=== PATIENT | male | born 1985 | race Caucasian/White ===

== ENCOUNTER 2024-03-13 20:58 | Emergency (ER) | payer OTHER, SELFPAY ==
[2024-03-13 21:09] VITALS: BP 122/83
--- NOTE | 2024-03-13 23:14 | ED.GENMED ---
History of Present Illness
General
Chief Complaint: Cold/Flu/URI Symptoms
Source: patient
Time Seen by Provider: 03/13/24 22:59
History of Present Illness
History of Present Illness:
38-year-old male presenting emergency department for evaluation of fevers, cough and generalized bodyaches over the last 24 hours. He attempted some Mucinex earlier this evening with minimal relief. No known sick contacts, recent travel or recent
antibiotics. Patient is also denying any abdominal pain, nausea, vomiting or any GI related symptoms.
Past History
Past History
ED Past Medical History: None
ED Past Surgical History: Appendectomy and Orthopedic
Social History
Tobacco: Non-smoker
Alcohol: None
Drug: None
Personal: Single
Living: with family
Employment: Employed
Review of Systems
Review of Systems
All Other Systems: ROS reviewed and negative except as documented in HPI and ROS
Phy Exam
Physical Exam
Physical Exam:
GENERAL: Alert , in no apparent distress
EYE: conjunctiva clear
Head: Normocephalic atraumatic
NECK: Supple,
ENT: mmm.
LUNGS: no acute respiratory distress
NEUROLOGICAL: Alert and oriented
SKIN: Warm and dry, skin intact.
MUSCULOSKELETAL: well perfused.
PSYCH: Normal and appropriate interaction.
Scores
Heart Failure Risk
Heart Failure Risk Score: Not Applicable
Heart Score for Chest Pain Patients
STEMI patient?: Not applicable
Withdrawal Assessment of Alcohol
Withdrawal Assessment Completed?: Not applicable
Course
Orders/Labs/Results
Orders:
Orders
03/13/24 21:09
Influenza A+B Rapid Molecular Urgent
NICOLAS Source: Nasal Swab
Specimen Description:
Date Specimen was Collected: 03/13/24
Time Specimen was Collected: 21:00
Vital Signs
Initial and Last Documented VS:
Initial Vital Signs
Temp Pulse Resp BP Pulse Ox
100 F 124 18 122/83 96
03/13/24 21:09 03/13/24 21:09 03/13/24 21:09 03/13/24 21:09 03/13/24 21:09
Last Documented Vital Signs
Temp Pulse Resp BP Pulse Ox
102.1 F H 124 26 132/78 100
03/13/24 23:15 03/13/24 23:15 03/13/24 23:15 03/13/24 23:15 03/13/24 23:15
MDM/Problems Addressed
Differential Diagnosis Includes:
Flu, COVID, viral syndrome, pneumonia
MDM/Problems Addressed:
38-year-old male presenting the ER for evaluation of 1 day of flulike symptoms. Patient test positive for flu A on arrival. Fever noted. Patient will take Motrin or Tylenol upon getting home. Tamiflu ordered. Patient advised on continued
supportive care measures. Otherwise stable for discharge home.
*Pulse Oximetry
Patient hypoxic: no
*Critical Care Note
Total Time (30-74mins, 75-104mins- exclusive of procedures): Not Applicable
ED Attending Note
-
Portions of this chart may have been created with voice recognition software.� Occasional wrong word or��sound alike� substitutions may have occurred due to the inherent limitations of voice recognition software.
Discharge Plan
Departure
Patient Disposition: Home (Routine Discharge)
Date of Disposition: 03/13/24
Time of Disposition: 23:14
Patient with high blood pressure during this ER visit?: No
Discharge Problem:
Influenza A
Instructions: Flu in adults - Discharge instructions
Prescriptions:
New
oseltamivir [Tamiflu] 75 mg capsule
75 mg PO BID 5 Days Qty: 10 0RF
Interventions
Interventions:
*Risk Screen - Suicide Last Done: 03/13/24 20:59
*General Assessment Last Done: 03/13/24 23:15
*Neglect/Abuse Screening Last Done: 03/13/24 20:59
*Nursing Disposition Last Done: 03/13/24 23:25
ED- Pulmonary Assessment Last Done: 03/13/24 23:15
Discharge Date and Time
Discharge Date/Time: 03/13/24 23:25
Print Language: MARSHALLESE
[2024-03-13 23:15] VITALS: BP 132/78
== END 2024-03-13 23:25 | disposition home or self-care (01) ==
LOC: EMR 20:58
PROVIDERS: EMERGENCY PHYSICIAN Student in an Organized Health Care Education/Training Program; FAMILY PHYSICIAN Student in an Organized Health Care Education/Training Program
DX: J10.1 Influenza due to other identified influenza virus with other respiratory manifestations (principal)
CPT/HCPCS: 99283; 87502